=== PATIENT | male | born 1940 | race Caucasian/White ===

== ENCOUNTER → 2019-03-02 | Day surgery (SDC) | payer MEDICARE, OTHER ==
[~2019-03-02] MED LIST: ALLOPURINOL300 MG PO; AMLODIPINE BESY10 MG PO; ATORVASTATIN PO; CLOPIDOGREL75 MG PO; CRESTOR PO; DEXAMETHASONE SOD PHOS INJ 4 MG/ML VIAL ONE; EPHEDRINE SULFATE INJ 50 MG/10 ML SYR ONE; EPINEPHRINE HCL 1:1000 1ML 1 MG/ML AMP ONE; FENTANYL CITRATE/PF 100MCG/2 ML INJ ONE; GLAUCOMA EYE DROPS OU; GLYCOPYRROLATE INJ 1MG/ 5 ML SYR ONE; LASIX20 MG PO; LIDOCAINE HCL 2% LOCAL INJ 5 ML SDV VIAL INJ ONE; LISINOPRIL PO; LUMIGAN2.5 M1 OP; METOPROLOL SUCC50 MG PO; MIDAZOLAM HCL 2 MG/2 ML VIAL ONE; NEOSTIGMINE 5 MG/5ML SYR ONE; ONDANSETRON HCL INJ 2MG/ML 2ML 2 MG/ML VIAL ONE; ONGLYZA2.5 MG PO; PROPOFOL IV EMULSION 10 MG/ML 20 ML VIAL ONE; ROCURONIUM BROMIDE 10 MG/ML 5ML VIAL ONE; SEVOFLURANE INHAL SOLN 250 ML PEN BTL ONE; THYROXINE PO; VITAMIN D PO
--- NOTE | 2019-03-02 08:51 | Diagnostic Imaging Report ---
EXAMINATION: CHEST 2 VIEWS INDICATION: Pre-operative COMPARISON: None FINDINGS: LINES/TUBES:None LUNGS:The lungs are well-inflated. No focal consolidation or pulmonary edema. PLEURA:No pleural effusion or pneumothorax. MEDIASTINUM:The cardiomediastinal silhouette appears normal in size and shape. Atherosclerotic calcifications of the thoracic aorta. BONES/SOFT TISSUES:No acute osseous injury. ABDOMEN:No free air under the diaphragm. IMPRESSION: No focal pneumonia or pulmonary edema. Signed by: Lisa Dennison MD on 03/02/2019 8:48 AM
[2019-03-02 11:20] VITALS: BP 124/77
--- NOTE | 2019-03-02 12:02 | Operative Report ---
DATE OF PROCEDURE: 03/02/2019 SURGEON: Jay Miller MD CHIEF COMPLAINT: Hoarseness. POSTOPERATIVE DIAGNOSES: Hoarseness with lesion in the right and left anterior vocal fold. OPERATIVE PROCEDURES: Direct laryngoscopy, rigid esophagoscopy, rigid bronchoscopy, microlaryngoscopy, and biopsy of the right and left vocal fold. ANESTHESIA: . INDICATIONS: This 79 years old male has a longstanding history of hoarseness. On examination, he was noted to have mobile vocal folds on both sides with lesion in the vocal folds anteriorly on both sides. CT scan of the neck that was done showed the patient has a polypoid lesion about 0.5 cm in the left vocal fold. The patient is a nonsmoker and nondrinker. It was decided that panendoscopy, microlaryngoscopy, and biopsy and other necessary procedure will be beneficial for him. DESCRIPTION OF PROCEDURE: The patient was taken to operating room, put under general anesthesia, endotracheally intubated. He was put in the appropriate positioning. Rigid esophagoscopy was performed. The esophagoscope was passed through the cricopharyngeus muscle. The esophagus was examined to about 25 cm from the incisor. No abnormality was noted. Esophagoscope was retrieved. A rigid bronchoscopy was performed. A size 4 bronchoscope with Hilario wire was used. The bronchoscope was passed parallel to the endotracheal tube. Endotracheal tube cuff was deflated. Trachea was examined down to the elijah. No abnormality was noted. The bronchoscope was retrieved. Endotracheal tube cuff was reinflated. The direct laryngoscopy was performed. A Dedo laryngoscope was used. Oropharynx and oral cavity were examined. The patient was noted to have tonsils 2+ on both sides. No abnormality was noted in the oropharynx or oral cavity. The piriform sinus on either side was examined. No abnormality was noted. The larynx was examined. Both the true and false vocal folds were examined. The false vocal folds on either side were noted to be normal. Lesion was noted in the true vocal fold on both the left and the right side and the anterior portion worse on the left. The microlaryngoscopy was performed. The laryngoscope was put on suspension and the operating microscope was brought in. The lesion in the vocal folds was re-examined. The vocal fold on the left side was noted to be papillary in appearance. It was noted to involve the anterior commissure with extension into the subglottic area. the anterior portion of the right vocal fold also was noted to have involvement of lesion. Using microlaryngeal instrument, the right vocal fold lesion was biopsied and sent for permanent section. Again using micro cup forceps, the right vocal fold lesion in the anterior commissure was biopsied, also the subglottic portion of the lesion was also biopsied using a cup forceps. Hemostasis on the lesion was achieved using epinephrine-soaked pledget. The patient tolerated the above procedure well with minimal blood loss. He was given 12 mg of Decadron intraoperatively. The patient was able to be transferred to recovery room in stable condition. Jay Miller MD DKH/MODL /[id number] cc: Arnoldo Knapp MD
--- NOTE | 2019-03-03 03:27 | Pre Op History & Physical ---
DATE OF SURGERY: March 02, 2019. CHIEF COMPLAINT: Hoarseness and lesion in the vocal fold. HISTORY OF PRESENT ILLNESS: This 79-year-old male has a one year history of hoarseness. The patient denies any dysphagia or odynophagia. He has no shortness of breath. The patient dip tobacco about half a can per day and is a nondrinker. A CT scan of the neck that was performed showed the patient has a lesion about 0.8 cm polypoid in the left vocal fold. No other neck mass was noted. REVIEW OF SYSTEMS: System review showed no recent cardiovascular, respiratory, or GI problem. PAST MEDICAL HISTORY: The patient has a history of hypertension, type 2 diabetes, and renal insufficiency. PAST SURGICAL HISTORY: The patient had a previous lumbar surgery, ear surgery, which include a left tympanoplasty. ALLERGIES: HE HAS NO KNOWN ALLERGY TO MEDICATION. MEDICATIONS: He is on: 1. Levothyroxine. 2. Lisinopril. 3. Lumigan. 4. Metoprolol. 5. Vitamin D. 6. Onglyza. 7. Vascepa. 8. Allopurinol. 9. Amlodipine besylate. 10. Atorvastatin. 11. Clopidogrel. 12. Lasix. 13. Timolol. 14. Maleate. SOCIAL HISTORY: He dips about a half a can a day and is a nondrinker. FAMILY HISTORY: Noncontributory. PHYSICAL EXAMINATION: VITAL SIGNS: On examination, the patient's vital signs were within normal limits. GENERAL: He was seen with his daughter and his . HEENT: Ear exam showed normal tympanic membranes bilaterally. Nasal exam showed deviated nasal septum on the right side about 40%. Nasal endoscopy show the patient has mobile vocal folds bilaterally with nodules in both vocal folds. No other lesion was noted in the hypopharynx. Oropharynx and oral cavity show upper dentures with 1+ tonsils bilaterally with Mallampati level 3. NECK: Show no lymph node or thyroid palpable. CHEST: Show good air entry bilaterally. CARDIOVASCULAR: Show S1, S2. No murmur noted. AWARD MACHINE OPERATOR: Show cranial nerves II through XII within normal limits. ASSESSMENT AND PLAN: Mr. Sosa has hoarseness and lesion of vocal folds, which has been resistant to conservative therapy. The suggested treatment is panendoscopy, microlaryngoscopy, and biopsy and other necessary procedure. The complication of procedure includes, but not limited to bleeding, infection, perforation, esophagus, pneumomediastinum, mediastinitis, airway compromise, and persistent recurrence of the problem. Alternatives will be continue observation, repeat flexible laryngoscopy exam, and biopsies of lesion in the office setting. The patient has elected to undergo surgical procedure. The patient has obtained the cardiac clearance from Dr. Bronson. He was advised to stop his Plavix at least five days before his procedure. The patient has elected to undergo surgical procedure. Jay Miller MD DKH/MODL /[id number] cc: MD Arnoldo Anaya MD
== END | disposition home or self-care (01) ==
LOC: OR 07:23
PROVIDERS: ATTEND Otolaryngology Otolaryngology/Facial Plastic Surgery
DX: C32.0 Malignant neoplasm of glottis (principal); H40.9 Unspecified glaucoma; G89.29 Other chronic pain; G47.33 Obstructive sleep apnea (adult) (pediatric); E11.22 Type 2 diabetes mellitus with diabetic chronic kidney disease; I12.9 Hypertensive chronic kidney disease with stage 1 through stage 4 chronic kidney disease, or unspecified chronic kidney disease; N18.9 Chronic kidney disease, unspecified; I45.10 Unspecified right bundle-branch block; R00.1 Bradycardia, unspecified; M10.9 Gout, unspecified; F17.220 Nicotine dependence, chewing tobacco, uncomplicated; Z79.02 Long term (current) use of antithrombotics/antiplatelets
CPT/HCPCS: 31536; 31622; 36415; 43191; 71046; 82948; 88305; 93005; J0171; J1100; J2001; J2250; J2405; J2704; J3010; J3490

== ENCOUNTER → 2020-02-22 | Day surgery (SDC) | payer MEDICARE, OTHER ==
--- NOTE | 2020-02-21 17:26 | Pre Op History & Physical ---
DATE OF SURGERY: February 22, 2020. CHIEF COMPLAINT: Right recurrence of vocal folds carcinoma. 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 The patient has undergone radiation and chemotherapy. The patient has some shortness of breath with questionable airway problem over the past few months. The nasal endoscopy showed the patient has decreased movement of the vocal folds, worse on the left side. A repeat PET scan showed that the patient has increased uptake in the larynx and more so on the left side with possible recurrence of the malignancy. No neck mass was noted. The patient has history of hoarseness. He has no dysphagia, odynophagia, or choking. The patient has no obvious weight changes. The patient has history of renal insufficiency. REVIEW OF SYSTEMS: System review showed no recent cardiovascular, respiratory, or GI problem. PAST MEDICAL HISTORY: The patient has type 2 diabetes, hypertension, and renal insufficiency. PAST SURGICAL HISTORY: The patient has previous back surgery, left tympanoplasty. ALLERGIES: HE HAS NO KNOWN ALLERGY TO MEDICATION. MEDICATIONS: The patient is on: 1. Levothyroxine. 2. Lisinopril. 3. Lumigan. 4. Metoprolol. 5. Vitamin D. 6. Onglyza. 7. Vascepa. 8. Allopurinol. 9. Amlodipine. 10. Atorvastatin. 11. Clopidogrel. 12. Lasix. 13. Timolol-maleate. SOCIAL HISTORY: He dips tobacco about half a can a day. He is a nondrinker. FAMILY HISTORY: Noncontributory. PHYSICAL EXAMINATION: VITAL SIGNS: On examination, the patient's vital signs were within normal limits. HEENT: Ear exam showed normal tympanic membrane bilaterally. Nasal exam show deviated nasal septum on the right side about 20%. The flexible laryngoscopy exam showed the patient has decreased movement of the vocal fold worse on the left side, questionable lesion in the left vocal fold. No lesion was noted on the hypopharynx. Oropharynx and oral cavity show 2+ tonsils bilaterally with Mallampati level 3. NECK: Showed no lymph node or thyroid palpable. CHEST: Showed good air entry bilaterally. CARDIOVASCULAR: Showed S1, S2. No murmur noted. STERNMAN: Show cranial nerves II through XII within normal limits. ASSESSMENT AND PLAN: Mr. Sosa has hoarseness and shortness of breath with a PET scan showing possible recurrence of carcinoma of the larynx. 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 The recent PET scan show recurrence likely more on the left side. The suggested treatment is panendoscopy, microlaryngoscopy, biopsy, and possible tracheostomy and other necessary procedure. Complication of procedure includes but not limited to bleeding, infection, perforation of the esophagus, pneumomediastinum, mediastinitis, airway compromise, persistent recurrence of the problem. Alternatives will be continue observation. Continue antibiotic therapy. Repeat flexible laryngoscopy exam and biopsy of the lesion in the office setting. The patient and his son have elected to undergo surgical procedure. The patient has obtained cardiac clearance from Dr. Bronson. That was the reason that the surgery was postponed because of his cardiac status. MD NICHOLAS Seals/MODL /[id number]
[~2020-02-22] MED LIST changes: +BETIMOL5 M1 OP; +CEFUROXIME250 MG PO; -EPHEDRINE SULFATE INJ 50 MG/10 ML SYR ONE; -EPINEPHRINE HCL 1:1000 1ML 1 MG/ML AMP ONE; +GLYCOPYRROLATE INJ 0.2 MG/ML VIAL ONE; -GLYCOPYRROLATE INJ 1MG/ 5 ML SYR ONE; +LIDOCAINE 1% W/EPINEPHRINE 20 ML VIAL ONE; -MIDAZOLAM HCL 2 MG/2 ML VIAL ONE; +NEOSTIGMINE 1 MG/ML 10ML VIAL ONE; -NEOSTIGMINE 5 MG/5ML SYR ONE; +PREDNISONE10 MG PO; +ROCURONIUM BROMIDE 10 MG/ML 5ML VIAL IV ONE; -ROCURONIUM BROMIDE 10 MG/ML 5ML VIAL ONE; +SUCCINYLCHOLINE CHLORIDE 20 MG/ML 10ML VIAL ONE; +SYNTHROID125 MCG PO; +VASCEPA1 GM PO; +VITAMIN D3250 MCG PO; +vitamin d PO
--- NOTE | 2020-02-22 07:20 | NUR ---
SPIRITUAL CARE - Pre-Surgery Assessment: Pt in bed. Pt reported supportive attention from family and friends. Intervention: Brine Room Laborer provided pastoral presence, hospitality, sympathetic listening, and prayer. Acquainted pt with availability of art specialist while hospitalized. Outcome: Pt expressed appreciation for visit. No need for follow up indicated at this time. [facility] O: [phone]
--- NOTE | 2020-02-22 07:50 | Diagnostic Imaging Report ---
EXAMINATION: CHEST 2 VIEWS INDICATION: Preop for vocal cord symptoms. ^DAYSURGERY ROOM 4 STAT COMPARISON: X-ray 03/02/2019. FINDINGS: TUBES and LINES: None. LUNGS: Normal lung volumes. Lungs are clear. No consolidations. PLEURA: No pleural effusion or pneumothorax. HEART AND MEDIASTINUM: The cardiomediastinal silhouette is unremarkable. BONES AND SOFT TISSUES: No acute osseous lesion. Soft tissues are unremarkable. UPPER ABDOMEN: No free air under the diaphragm. IMPRESSION: No acute thoracic radiographic abnormality. Signed by: Salomón Knutson MD on 02/22/2020 7:47 AM
[2020-02-22 10:20] VITALS: BP 130/76
--- NOTE | 2020-02-22 10:34 | Operative Report ---
DATE OF PROCEDURE: 02/22/2020 SURGEON: Jay Miller MD CHIEF COMPLAINT: Cancer of the larynx. POSTOPERATIVE DIAGNOSIS: Cancer of the larynx with possible recurrence of cancer of the larynx. OPERATIVE PROCEDURE: Direct laryngoscopy, rigid esophagoscopy, rigid bronchoscopy, microlaryngoscopy, biopsy of the right and left vocal fold with biopsy of the left subglottic area. ANESTHESIA: Anesthesiology group. INDICATION FOR OPERATION: This 80-year-old male was diagnosed with CA of the larynx about a year ago. The patient underwent radiation and chemotherapy. The patient has been having more hoarseness recently. Repeat PET scan showed that the patient has possible recurrence on the left vocal fold area. On examination, the patient was noted to have decreased movement of the left vocal fold with mobile right vocal fold with no obvious tumor noted. It was decided panendoscopy, microlaryngoscopy, biopsy and other necessary procedure will be beneficial for him. DESCRIPTION OF PROCEDURE: The patient was taken to the operating room, put under general anesthesia, endotracheally intubated. The patient was taken to the operating room. The rigid esophagoscopy was performed. Esophagoscope was passed through the cricopharyngeus muscle. The esophagus was examined down to the 25 cm from the incisor. No abnormality was noted. The esophagoscope was retrieved. The rigid bronchoscopy was performed. The size #4 bronchoscope with Hilario wire was used. The bronchoscope was passed parallel to endotracheal tube. Endotracheal tube cuff was deflated. Trachea was examined down to the elijah. No abnormality was noted. It is a questionable recurrence, there is a possibility of subglottic spread of tumor on the left side. The direct laryngoscopy was performed. The Dedo laryngoscope was used. Oropharynx and oral cavity were examined. No abnormality was noted. The piriform sinus on either side was examined. No abnormality was noted. The larynx was examined. The left vocal fold was not clearly seen and questionable lesion was noted in the subglottic area. No obvious lesion was noted in the right side of the larynx. The microlaryngoscopy was performed. The laryngoscope was put on suspension and operating microscope was inserted. The left larynx was identified, possible recurrence of tumor was noted in the true vocal fold area. This was biopsied using the cup forceps. The possible tumor was also noted in the subglottic area to about 1 cm to 1.5 cm. These were biopsied using the cup forceps and sent for permanent section. The tumor seems to be circumferential in a veronika-circular fashion on the left side, did not seem to involve the right. The right larynx was examined. No obvious lesion was noted in the right vocal fold, but this was biopsied using a cup forceps. The subglottic area on the right side was examined. Again, no abnormality was noted. The patient tolerated the above procedure well with minimal blood loss. Hemostasis in the larynx was achieved using epinephrine-soaked pledgets. He was given 20 mg of Decadron intraoperatively. The patient was able to be transferred to recovery room in stable condition. Hemostasis in the larynx was achieved using the epinephrine-soaked pledget. He tolerated the above procedure well with minimal blood loss. He was given 20 mg of Decadron intraoperatively. The patient was able to be transferred to recovery room in stable condition. MD NICHOLAS Seals/MODL /[id number]
== END | disposition home or self-care (01) ==
LOC: OR 06:46
PROVIDERS: ATTEND Otolaryngology Otolaryngology/Facial Plastic Surgery
DX: C32.0 Malignant neoplasm of glottis (principal); C32.2 Malignant neoplasm of subglottis; I45.10 Unspecified right bundle-branch block; G47.33 Obstructive sleep apnea (adult) (pediatric); E11.22 Type 2 diabetes mellitus with diabetic chronic kidney disease; I12.9 Hypertensive chronic kidney disease with stage 1 through stage 4 chronic kidney disease, or unspecified chronic kidney disease; N18.9 Chronic kidney disease, unspecified; F17.220 Nicotine dependence, chewing tobacco, uncomplicated; Z01.812 Encounter for preprocedural laboratory examination; Z11.59 Encounter for screening for other viral diseases; Z79.02 Long term (current) use of antithrombotics/antiplatelets
CPT/HCPCS: 31536; 31622; 36415; 43191; 71046; 82948; 88305; 88342; J0330; J1100; J2001; J2405; J2704; J2710; J3010; U0002